=== PATIENT | male | born 1975 | race American Indian/Alaskan Native ===

== ENCOUNTER 2019-12-28 06:00 | Emergency (ER) | payer SELFPAY ==
[2019-12-28 07:53] LABS: Basophils % (Auto) 0.8 % (0.0-1.8); Eosinophils # (Auto) 0.2 K/mm3 (0.0-0.4); Eosinophils % (Auto) 4.1 % (0.0-4.3); Hematocrit 39.6 % (35.5-45.6); Hemoglobin 13.4 gm/dl (11.8-15.2); Lymphocytes # (Auto) 1.2 K/mm3 (1.2-5.4); Mean Corpuscular HGB Conc 34 % (32-34); Mean Corpuscular Volume 93 fl (84-94); Monocytes # (Auto) 0.8 K/mm3 (0.0-0.8); Monocytes % (Auto) 13.3 % (0.0-7.3); Platelet Count 194 K/mm3 (140-440); Red Blood Count 4.25 M/mm3 (3.65-5.03); Red Cell Distribution Width 13.8 % (13.2-15.2)
[2019-12-28 08:07] LABS: BUN/Creatinine Ratio 12; Blood Urea Nitrogen 12 mg/dL (9-20); Calcium 9.6 mg/dL (8.4-10.2); Hemolysis Index 0
--- NOTE | 2019-12-28 10:24 | Emergency Department Report ---
HPI - General Chief Complaint: GI Bleed Time Seen by Provider: 12/28/19 10:03 - [facility] HPI: Room 9 The patient is a 44-year-old male presenting with a chief complaint rectal bleeding. The patient states this morning he noticed blood in the stool when he had a bowel movement. Patient denies rectal pain. Patient states the blood was bright red in color. Patient denies nausea or vomiting. When asked how he is feeling currently the patient plus he feels "pretty good." Location: [See above] Duration: [See above] Quality: [See above] Severity: [See above] Timing: [See above] Context: [See above] Modifying factors: [See above] Associated signs and symptoms: [see above] ED Past Medical Hx - Past Medical History Previous Medical History?: Yes Hx Psychiatric Treatment: Yes (Anxiety, PTSD, Depression) - Surgical History Past Surgical History?: Yes Hx Appendectomy: Yes - Family History Family history: no significant - Social History Smoking Status: Current Every Day Smoker (2/3 pack per day) Substance Use Type: Alcohol (approximately 1 pint of liquor daily) - Medications Home Medications: Home Medications Medication Instructions Recorded Confirmed Last Taken Type Hydrocortisone [Anucort-HC SUPPOS] 25 mg RC BID #10 supp.rect 12/28/19 Unknown Rx ED Review of Systems ROS: Stated complaint: BLOOD IN STOOL/ALCOHOL WITHDRAWL Other details as noted in HPI Constitutional: no symptoms reported Eyes: denies: eye pain ENT: denies: throat pain Respiratory: no symptoms reported Cardiovascular: denies: chest pain Endocrine: no symptoms reported Gastrointestinal: hematochezia. denies: abdominal pain, nausea, vomiting Genitourinary: denies: dysuria Musculoskeletal: denies: back pain Neurological: denies: headache Physical Exam - Physical Exam Vital Signs: Vital Signs 12/28/19 12/28/19 12/28/19 06:09 07:37 07:39 Temperature 98.6 F Pulse Rate 96 H 94 H 90 Respiratory 18 27 H 16 Rate Blood Pressure 148/94 Blood Pressure 138/98 [Left] O2 Sat by Pulse 100 98 Oximetry 12/28/19 12/28/19 12/28/19 07:45 08:00 08:15 Temperature Pulse Rate 109 H 79 104 H Respiratory 21 15 18 Rate Blood Pressure 139/98 141/99 141/99 Blood Pressure [Left] O2 Sat by Pulse 98 98 97 Oximetry 12/28/19 12/28/19 12/28/19 08:30 08:45 09:00 Temperature Pulse Rate 81 105 H 78 Respiratory 16 16 12 Rate Blood Pressure 129/80 129/80 145/100 Blood Pressure [Left] O2 Sat by Pulse 99 98 98 Oximetry 12/28/19 12/28/19 12/28/19 09:15 09:30 09:45 Temperature Pulse Rate Respiratory 11 L 12 11 L Rate Blood Pressure 153/92 148/94 138/87 Blood Pressure [Left] O2 Sat by Pulse 96 99 97 Oximetry Vital Signs 12/28/19 12/28/19 12/28/19 06:09 07:37 07:39 Temperature 98.6 F Pulse Rate 96 H 94 H 90 Pulse Rate [ Lying] Pulse Rate [ Sitting] Pulse Rate [ Standing] Respiratory 18 27 H 16 Rate Blood Pressure 148/94 Blood Pressure 138/98 [Left] Blood Pressure [Lying] Blood Pressure [Sitting] Blood Pressure [Standing] O2 Sat by Pulse 100 98 Oximetry 12/28/19 12/28/19 12/28/19 07:45 08:00 08:15 Temperature Pulse Rate 109 H 79 104 H Pulse Rate [ Lying] Pulse Rate [ Sitting] Pulse Rate [ Standing] Respiratory 21 15 18 Rate Blood Pressure 139/98 141/99 141/99 Blood Pressure [Left] Blood Pressure [Lying] Blood Pressure [Sitting] Blood Pressure [Standing] O2 Sat by Pulse 98 98 97 Oximetry 12/28/19 12/28/19 12/28/19 08:30 08:45 09:00 Temperature Pulse Rate 81 105 H 78 Pulse Rate [ Lying] Pulse Rate [ Sitting] Pulse Rate [ Standing] Respiratory 16 16 12 Rate Blood Pressure 129/80 129/80 145/100 Blood Pressure [Left] Blood Pressure [Lying] Blood Pressure [Sitting] Blood Pressure [Standing] O2 Sat by Pulse 99 98 98 Oximetry 12/28/19 12/28/19 12/28/19 09:15 09:30 09:45 Temperature Pulse Rate Pulse Rate [ Lying] Pulse Rate [ Sitting] Pulse Rate [ Standing] Respiratory 11 L 12 11 L Rate Blood Pressure 153/92 148/94 138/87 Blood Pressure [Left] Blood Pressure [Lying] Blood Pressure [Sitting] Blood Pressure [Standing] O2 Sat by Pulse 96 99 97 Oximetry 12/28/19 10:30 Temperature Pulse Rate Pulse Rate [ 89 Lying] Pulse Rate [ 87 Sitting] Pulse Rate [ 95 H Standing] Respiratory Rate Blood Pressure Blood Pressure [Left] Blood Pressure 138/96 [Lying] Blood Pressure 136/98 [Sitting] Blood Pressure 135/99 [Standing] O2 Sat by Pulse Oximetry Physical Exam: GENERAL: The patient is well-developed well-nourished male lying on stretcher not appearing to be in acute distress. [] HEENT: Normocephalic. Atraumatic. Extraocular motions are intact. Patient has moist mucous membranes. NECK: Supple. Trachea midline CHEST/LUNGS: Clear to auscultation. There is no respiratory distress noted. HEART/CARDIOVASCULAR: Regular. There is no tachycardia. There is no gallop rub or murmur. ABDOMEN: Abdomen is soft, nontender. Patient has normal bowel sounds. There is no abdominal distention. SKIN: There is no rash. There is no edema. There is no diaphoresis. NEURO: The patient is awake, alert, and oriented. The patient is cooperative. The patient has normal speech. There is no tremulousness noted MUSCULOSKELETAL: There is no evidence of acute injury. RECTAL: Guaiac negative. No external hemorrhoids appreciated ED Course Vital Signs 12/28/19 12/28/19 12/28/19 06:09 07:37 07:39 Temperature 98.6 F Pulse Rate 96 H 94 H 90 Respiratory 18 27 H 16 Rate Blood Pressure 148/94 Blood Pressure 138/98 [Left] O2 Sat by Pulse 100 98 Oximetry 12/28/19 12/28/19 12/28/19 07:45 08:00 08:15 Temperature Pulse Rate 109 H 79 104 H Respiratory 21 15 18 Rate Blood Pressure 139/98 141/99 141/99 Blood Pressure [Left] O2 Sat by Pulse 98 98 97 Oximetry 12/28/19 12/28/19 12/28/19 08:30 08:45 09:00 Temperature Pulse Rate 81 105 H 78 Respiratory 16 16 12 Rate Blood Pressure 129/80 129/80 145/100 Blood Pressure [Left] O2 Sat by Pulse 99 98 98 Oximetry 12/28/19 12/28/19 12/28/19 09:15 09:30 09:45 Temperature Pulse Rate Respiratory 11 L 12 11 L Rate Blood Pressure 153/92 148/94 138/87 Blood Pressure [Left] O2 Sat by Pulse 96 99 97 Oximetry ED Medical Decision Making - Lab Data Result diagrams: 12/28/19 07:07 12/28/19 07:07 Laboratory Tests 12/28/19 12/28/19 07:07 07:07 WBC 5.9 RBC 4.25 Hgb 13.4 Hct 39.6 MCV 93 MCH 32 MCHC 34 RDW 13.8 Plt Count 194 Lymph % (Auto) 21.0 [place] % (Auto) 13.3 H Eos % (Auto) 4.1 Baso % (Auto) 0.8 Lymph # 1.2 [place] # 0.8 Eos # 0.2 Baso # 0.0 Seg Neutrophils % 60.8 Seg Neutrophils # 3.6 Sodium 137 Potassium 3.6 Chloride 97.2 L Carbon Dioxide 22 Anion Gap 21 BUN 12 Creatinine 1.0 Estimated GFR > 60 BUN/Creatinine Ratio 12 Glucose 116 H Calcium 9.6 - Differential Diagnosis hemorrhoids, anal fissure, colon mass, colonic polyp Critical care attestation.: If time is entered above; I have spent that time in minutes in the direct care of this critically ill patient, excluding procedure time. ED Disposition Clinical Impression: Rectal bleeding Disposition: DC-01 TO HOME OR SELFCARE Is pt being admited?: No Does the pt Need Aspirin: No Condition: Stable Instructions: Rectal Bleeding (ED) Additional Instructions: Return to the emergency department should you develop worsening symptoms, inability to tolerate food or liquids, high fever or any other concerns Prescriptions: Hydrocortisone [Anucort-HC SUPPOS] 25 mg RC BID #10 supp.rect Referrals: PRIMARY CAREMD [Primary Care Provider] - 3-5 Days NICHOLAS HOWARD MD [Staff Physician] - 3-5 Days (Dr. Howard is a sales service technician. Please follow-up with him for further evaluation) Forms: Accompanied Note Time of Disposition: 10:38
[2019-12-28 10:43] VITALS: BP 138/96
== END 2019-12-28 11:02 | disposition home or self-care (01) ==
LOC: ED 06:00
DX: K62.5 Hemorrhage of anus and rectum (principal); F41.9 Anxiety disorder, unspecified; F32.9 Major depressive disorder, single episode, unspecified; F43.10 Post-traumatic stress disorder, unspecified; F17.200 Nicotine dependence, unspecified, uncomplicated; Z90.89 Acquired absence of other organs
CPT/HCPCS: 36415; 80048; 82271; 85025